=== PATIENT | male | born 1990 | race Caucasian/White ===

== ENCOUNTER 2016-11-14 13:32 | Emergency (ER) | payer SELFPAY ==
--- NOTE | 2016-11-14 13:39 | EDPHY ---
H & P Time Seen by Provider: 11/14/16 13:39 Constitutional: Initial Vital Signs Temperature (C) 36.7 C 11/14/16 13:47 Heart Rate 105 H 11/14/16 13:47 Respiratory Rate 18 11/14/16 13:47 Blood Pressure 128/93 H 11/14/16 13:47 O2 Sat (%) 96 11/14/16 13:47 O2 Delivery Mode Room Air Allergies/Adverse Reactions: No Known Allergies Allergy (Unverified 11/14/16 13:51) Home Medications: Medication Instructions Recorded NK [No Known Home Meds] 11/14/16 Medical Decision Making ED Course/Re-evaluation: CHIEF COMPLAINT: Psychiatric evaluation for paranoia and combativeness HISTORY OF PRESENT ILLNESS: This patient is a 26 year old male arriving via [employer] on an M1 hold for paranoia and combativeness. He is minimally cooperative during assessment and is actively using profanity with staff. He states that today he has smoked "resin " out of a glass pipe and drank [employer]airo[employer] vodka. He states he fell into a hdez while "retrieving his stash" but denies any ongoing pain or injury. He denies any changes in vision, headache, nausea, vomiting, or other associated symptoms. He denies suicidal or homicidal ideation. REVIEW OF SYSTEMS: A 10 point review of systems was performed and is negative with the exception of the elements mentioned in the history of present illness. PHYSICAL EXAM: General Appearance: Alert, well hydrated, appropriate, and non-toxic appearing. Head: Small abrasion to left worship. Eyes: Pupils equal, round, reactive to light and accommodation, EOMI, no trauma , no injection. Throat: Mucus membranes moist. Neck: Supple, nontender. Respiratory: No retractions, no distress, no wheezes, and no accessory muscle use. Lungs are clear to auscultation bilaterally. Cardiovascular: Regular rate and rhythm, no murmurs, rubs, or gallops. Good capillary refill all extremities. Gastrointestinal: Abdomen is soft, nontender, non-distended, no masses, no rebound, no guarding, no peritoneal signs. Musculoskeletal: Abrasion to left knee. Normal active ROM of all extremities, atraumatic. Neurological: Alert, appropriate, and interactive. Non-focal neuro exam. Skin: Flushed face. No rashes, good turgor, no nodules on palpation. Past medical history: Schizoaffective disorder Past surgical history: Denies Family history: Noncontributory Social history: Lives in [place] DIFFERENTIAL DIAGNOSIS: The differential diagnosis for the patient's paranoia included but was not limited to schizophrenia, functional and major depression, situational depression, medication side effect, drugs, and alcohol abuse. MEDICAL DECISION MAKING: Patient is in no acute distress and is hemodynamically stable. Patient has known history of psychiatric disorders and is here for evaluation. Reassessed patient, he is slightly agitated and requesting to smoke a cigarette. He has agreed to Nicotine gum instead. EtOH 200. Patient is agitated. 10mg Haldol administered. We are awaiting psychiatric team's evaluation. (Wilder Gordon) 11:00 p.m. the patient has been evaluated by Mental Health. He is no longer having suicidal statements feelings. The psychiatrist legal consultant would like to re- evaluate in the morning because they do not have collateral information. Care transferred to Dr. Babar Maldonado and 11:00 p.m. (Jovi Stanton) 2300 Care assumed by me pending mental health evaluation. [address] Vazquez pending mental health evaluation. (Chan Maldonado) Other Provider: I assumed care of this patient from Dr. Maldonado at 7:00 a.m.. The patient underwent psychiatric evaluation. He is not felt to be a danger to himself or to others or to be gravely disabled. Patient denies homicidality or suicidality. It is felt that his presentation was most likely related to alcohol intoxication. The mental health hold has been lifted and the patient is [facility] where he will arrange outpatient care. (Julissa Vazquez) - Data Points Laboratory Results: Laboratory Results 11/14/16 13:54 11/14/16 13:54 Medications Given: Discontinued Medications Haloperidol Lactate (Haldol Injection) 10 mg IM EDNOW ONE Stop: 11/14/16 14:58 Last Admin: 11/14/16 15:00 Dose: 10 mg Lorazepam (Ativan) 2 mg PO EDNOW ONE Stop: 11/14/16 13:48 Last Admin: 11/14/16 13:54 Dose: 2 mg Nicotine Polacrilex (Nicorette) 2 mg B PRN PRN PRN Reason: Nicotine Withdrawal Stop: 05/13/17 14:19 Last Admin: 11/14/16 14:23 Dose: 2 mg Departure - Departure Disposition: Home, Routine, Self-Care Clinical Impression: Alcohol intoxication Condition: Good Instructions: Alcohol Intoxication (ED) Additional Instructions: For primary care you should register with [facility]. Go directly to the mental health clinic today. Referrals: [facility],. [Clinic] - As per Instructions [facility] [Outside] - As per Instructions Report Scribed for: Wilder Gordon Report Scribed by: Reena Miller Date of Report: 11/14/16 Time of Report: 15:00
[2016-11-14] MEDS ORDERED: LORazepam 1 MG TAB PO ONE (13:47)
[2016-11-14 13:51] VITALS: O2SAT 96
[2016-11-14 14:00] LABS: % IMMATURE GRANULYOCYTES 0.3 % (0.0-1.1); ABSOLUTE IMMATURE GRANULOCYTES 0.02 10^3/uL (0.00-0.10); ADD DIFF? NO; ADD MORPH? NO; ADD SCAN? NO; ATYPICAL LYMPHOCYTE FLAG 30 (0-99); FRAGMENT RBC FLAG 0 (0-99); HEMATOCRIT 45.6 % (40.0-51.0); HEMOGLOBIN 15.1 g/dL (13.7-17.5); LEFT SHIFT FLG 0 (0-99); LIPEMIA HEMOLYSIS FLAG 80 (0-99); MEAN CELL HEMOGLOBIN 29.9 pg (27.9-34.1); MEAN CELL HEMOGLOBIN CONCENTR. 33.1 g/dL (32.4-36.7); MEAN CELL VOLUME 90.3 fL (81.5-99.8); MEAN PLATELET VOLUME 10.3 fL (8.7-11.7); PLATELET CLUMPS FLAG 0 (0-99); PLATELET COUNT 252 10^3/uL (150-400); RED BLOOD CELL COUNT 5.05 10^6/uL (4.40-6.38); RED CELL DISTRIBUTION WIDTH 14.2 % (11.5-15.2)
[2016-11-14 14:14] LABS: ANION GAP 14 mEq/L (8-16); CALCIUM 9.6 mg/dL (8.5-10.4); CARBON DIOXIDE 22 mEq/l (22-31); CHLORIDE 107 mEq/L (97-110); CREATININE 0.8 mg/dL (0.7-1.3); ETHANOL SERUM 209 mg/dL (0-10); GLOMERULAR FILTRATION RATE > 60; GLUCOSE 102 mg/dL (70-100); POTASSIUM 4.5 mEq/L (3.5-5.2); SALICYLATE < 1.0 mg/dL (2.0-20.0); SODIUM 143 mEq/L (134-144)
[2016-11-14] MEDS ORDERED: NICOTINE POLACRILEX 2 MG GUM B PRN (14:20)
[2016-11-14] MEDS ORDERED: HALOPERIDOL LACT 5 MG/ML INJ ONE (14:57)
[2016-11-14] MEDS ORDERED: HALOPERIDOL LACT 5 MG/ML INJ IM ONE (14:57)
[2016-11-15 08:20] VITALS: RESP 14; TEMP 97.5
[2016-11-15 09:09] VITALS: BP 130/78; PULSE 75
== END 2016-11-15 09:08 | disposition home or self-care (01) ==
DX: F10.129 Alcohol abuse with intoxication, unspecified (principal)
CPT/HCPCS: 80305; G0480

== ENCOUNTER 2017-03-27 06:35 | Emergency (ER) | payer MEDICAID ==
--- NOTE | 2017-03-27 06:43 | EDPHY ---
H & P Source: Patient, EMS - Medical/Surgical History Hx Asthma: No Hx Chronic Respiratory Disease: No Hx Diabetes: No Hx Cardiac Disease: No Hx Renal Disease: No Hx Cirrhosis: No Hx Alcoholism: No Hx HIV/AIDS: No Hx Splenectomy or Spleen Trauma: No Other PMH: Schizoeffective disorder. - Social History Smoking Status: Unknown if ever smoked HPI/ROS: HPI CHIEF COMPLAINT: Altered mental status possible drug intoxication HISTORY OF PRESENT ILLNESS: This patient 27-year-old male who presents emergency room by EMS [facility], after he was found in [facility] and was speaking incoherently and rambling. Due the patient's mental state his history and ROS is limited. There does not appear to be any trauma. He presents to the emergency room rambling. Unable to get an accurate history. Patient repeats over and over again "dont talk to me" Past Medical History: Unknown at this time Past Surgical History: Unknown Social History: Unknown Family History: Unknown ROS REVIEW OF SYSTEMS: Limited due to patient's mental state. Exam Constitutional uncooperative, triage nursing summary reviewed, vital signs reviewed, awake/alert. Eyes normal conjunctivae and sclera, EOMI, PERRLA. HENT normal inspection, atraumatic, moist mucus membranes, no epistaxis, neck supple/ no meningismus, no raccoon eyes. Respiratory clear to auscultation bilaterally, normal breath sounds, no respiratory distress, no wheezing. Cardiovascular rate normal, regular rhythm, no murmur, no edema, distal pulses normal. Gastrointestinal soft, non-tender, no rebound, no guarding, normal bowel sounds, no distension, no pulsatile mass. Genitourinary no CVA tenderness. Musculoskeletal no midline vertebral tenderness, full range of motion, no calf swelling, no tenderness of extremities, no meningismus, good pulses, neurovascularly intact. Skin pink, warm, & dry, no rash, skin atraumatic. Neurologic he is awake and moves all extremities. Non cooperative. Speaks in complete sentences. And states "dont talk to me" Psychiatric normal mood/affect. Heme/Lymph/Immune no lymphadenopathy. Differential Diagnosis: Includes but is not limited to in a particular order drug intoxication, substance abuse, underlying psychiatric illness Medical Decision Making: Plan for this patient IV establishment blood draw, check alcohol level, drug screen. Re-evaluate. Re-evaluation: 0712AM: At this time this patient has been signed over to Dr. Landon Smalls. Follow-up blood work and drug screen. Re-evaluate. (Ravinder Melchor) Constitutional: Initial Vital Signs Temperature (C) 37.1 C 03/27/17 06:49 Heart Rate 117 H 03/27/17 06:49 Respiratory Rate 20 03/27/17 06:49 Blood Pressure 145/92 H 03/27/17 06:49 O2 Sat (%) 91 L 03/27/17 06:49 O2 Delivery Mode Room Air Allergies/Adverse Reactions: No Known Allergies Allergy (Unverified 11/14/16 13:51) Home Medications: Medication Instructions Recorded Clotrimazole 1% 1 applic TP BID #1 cream 03/27/17 Medical Decision Making ED Course/Re-evaluation: I re-evaluated this patient at 7:10 a.m.. The patient will talk to me or answer questions though he is alert and appears to be able to hear me speaking to him. He replies repeatedly "don't talk to me Bird". Patient has papers from a counter [employer] our emergency department in [place] yesterday with diagnosis contusion of knee. Instructions were for use of Motrin for discomfort. The only history is reviewed of found outside running around without a sure. Patient does not voice any complaints to me. He is uncooperative for the exam but allows me to listen to heart and lungs which are normal and palpated his abdomen which appears to be nontender. Patient is on an arc hold by [place] [employer]. Re-evaluation again at 8:20 a.m.. Patient remained stable. He is alert and looks at me when I speak to him however he does not answer or speak to me. He remains nonverbal re-evaluation again at 9:45 a.m. patient is now talking and interacting. He tells me he is not thinking of harming himself or others. He denies drug ingestion. He tells me that he was at a store this morning and trying to buy something there was problem with pain meds and he got may add and this was the reason for him caring on. He is concerned about his bruise to his knee and chronic toenail infection. He denies that he has mental health issues and is not supposed to be taking any medication. He and I discussed treatment plan and criteria for return as well as importance of follow-up. He expresses understanding and agreement. (Landon Smalls) Differential Diagnosis: It appears that the patient does have some underlying mental health issues. However he is stable. He is not suicidal or homicidal. There is no acute findings of medical problems other than appearance of a 1 to 2-day-old bruise on his left knee. He is now alert oriented and conversational. (Landon Smalls) - Data Points Laboratory Results: Laboratory Results 03/27/17 07:55 03/27/17 07:55 Medications Given: Discontinued Medications Fluconazole (Diflucan) 150 mg PO ONCE ONE Stop: 03/27/17 10:03 Last Admin: 03/27/17 10:27 Dose: 150 mg Ibuprofen (Motrin) 600 mg PO EDNOW ONE Stop: 03/27/17 10:01 Last Admin: 03/27/17 10:26 Dose: 600 mg Departure - Departure Disposition: Home, Routine, Self-Care Clinical Impression: Knee contusion, Agitation Condition: Good Instructions: Contusion in Adults (ED) Additional Instructions: Ibuprofen 600 mg every 6 hours as needed for pain for your knee. May use Tinactin and [id number] fungal medications to help with fungal infection of toes. Return for worsening symptoms or thoughts of harming herself or others. I will give you the name of Clinic here in [place] for follow-up and further evaluation. You may walk in to be seen at [facility] tomorrow between 8 and 10:00 a.m. Referrals: Patient,NotPresent [Unknown] - As per Instructions [facility] [Outside] - 2-3 days, call for appt. Prescriptions: Clotrimazole 1% 1 applic TP BID #1 cream
[2017-03-27 08:07] LABS: % IMMATURE GRANULYOCYTES 0.4 % (0.0-1.1); ABSOLUTE IMMATURE GRANULOCYTES 0.05 10^3/uL (0.00-0.10); ADD DIFF? NO; ADD MORPH? NO; ADD SCAN? NO; ATYPICAL LYMPHOCYTE FLAG 0 (0-99); FRAGMENT RBC FLAG 0 (0-99); HEMATOCRIT 40.5 % (40.0-51.0); HEMOGLOBIN 13.9 g/dL (13.7-17.5); LEFT SHIFT FLG 0 (0-99); LIPEMIA HEMOLYSIS FLAG 90 (0-99); MEAN CELL HEMOGLOBIN 29.5 pg (27.9-34.1); MEAN CELL HEMOGLOBIN CONCENTR. 34.3 g/dL (32.4-36.7); MEAN PLATELET VOLUME 10.9 fL (8.7-11.7); PLATELET CLUMPS FLAG 0 (0-99); PLATELET COUNT 212 10^3/uL (150-400); RED BLOOD CELL COUNT 4.71 10^6/uL (4.40-6.38); RED CELL DISTRIBUTION WIDTH 13.2 % (11.5-15.2)
[2017-03-27 08:08] VITALS: TEMP 98.6
[2017-03-27 08:22] LABS: ANION GAP 11 mEq/L (8-16); CALCIUM 9.3 mg/dL (8.5-10.4); CARBON DIOXIDE 25 mEq/l (22-31); CHLORIDE 102 mEq/L (97-110); CREATININE 0.7 mg/dL (0.7-1.3); ETHANOL SERUM < 10 mg/dL (0-10); GLOMERULAR FILTRATION RATE > 60; GLUCOSE 103 mg/dL (70-100); POTASSIUM 4.2 mEq/L (3.5-5.2); SODIUM 138 mEq/L (134-144)
[2017-03-27] MEDS ORDERED: IBUPROFEN 600 MG TAB PO ONE (10:00)
[2017-03-27] MEDS ORDERED: FLUCONAZOLE 150 MG TAB PO ONE (10:02)
[2017-03-27 10:34] VITALS: BP 140/80; PULSE 93; RESP 18; O2SAT 97
--- NOTE | 2017-03-27 11:38 | ASDISCHSUM ---
Discharge Information Plan Status: Medically Cleared to Leave: Discharge Date:03/27/2017 10:33 AM CM D/C Disposition: ADT D/C Disposition:Home, Routine, Self-Care Projected Discharge Date:03/27/2017 10:33 AM Transportation at D/C: Discharge Delay Reason: Follow-Up Date:03/27/2017 10:33 AM Discharge Slot: Final Diagnosis: Placement Information Patient Contact Information Contact Name:KEE Relationship:Mother Address: Work Phone: City: [facility] Phone: State/Zip Code:[place] Email: Financial Information Financial Class: Primary Plan Desc:[employer] Primary Plan Number:[id number] Secondary Plan Desc: Secondary Plan Number: Assessment Information Intervention Information
== END 2017-03-27 10:33 | disposition home or self-care (01) ==
LOC: EDUNIT#
DX: R45.1 Restlessness and agitation (principal); M79.81 Nontraumatic hematoma of soft tissue
CPT/HCPCS: G0480

== ENCOUNTER 2017-03-28 00:28 | Emergency (ER) | payer MEDICAID ==
--- NOTE | 2017-03-28 00:33 | EDPHY ---
H & P - Medical/Surgical History Hx Asthma: No Hx Chronic Respiratory Disease: No Hx Diabetes: No Hx Cardiac Disease: No Hx Renal Disease: No Hx Cirrhosis: No Hx Alcoholism: No Hx HIV/AIDS: No Hx Splenectomy or Spleen Trauma: No Other PMH: Schizoeffective disorder. - Social History Smoking Status: Unknown if ever smoked <Ryan Fuentes - Last Filed: 03/28/17 00:36> <Chan Maldonado - Last Filed: 03/28/17 04:41> Time Seen by Provider: 03/28/17 00:32 HPI/ROS: CHIEF COMPLAINT: Alcohol use, head injury HISTORY OF PRESENT ILLNESS: 27-year-old homeless male arrives by ambulance, not a trauma activation, after he was found sleeping on someone's front porch and was noted to have frontal hematoma and laceration. He is not recall how this injury at . Admits to alcohol use. He denies complaints of physical pain or discomfort. Denies: Peripheral paresthesia, weakness, numbness, suicidal or homicidal ideation PRIMARY CARE PROVIDER:none REVIEW OF SYSTEMS: A ten point review of systems was performed and is negative with the exception of the items mentioned in the HPI PAST MEDICAL/SURGICAL HISTORY: Self-described "mental health issues" however will not elaborate further on this SOCIAL HISTORY: Homeless, positive beer this evening PHYSICAL EXAM 1) GENERAL: Well-developed, well-nourished, alert and oriented. Appears to be in no acute distress. Answering questions appropriately. 2) HEAD: Normocephalic, midline frontal hematoma and 2.5 cm transverse laceration 3) HEENT: Pupils equal, round, reactive to light bilaterally. Negative Horners. Nasopharynx, oropharynx, clear. No deformity or angulation of nose. No septal hematoma. No rhinorrhea. No oral trauma. Ears bilaterally with normal tympanic membranes. No hemotympanum. No fluid or blood in the external auditory canal. No raccoon eyes. No Duff sign. Teeth are normally aligned with no gross malocclusion, TMJ bilaterally nontender, facial bones nontender including the zygomatic arch, maxilla mandible. 4) NECK: Cervical collar is on.Cervical collar is removed while holding inline traction and patient has no complaints of midline cervical pain, no effusion noted, trachea midline, no JVD. Cervical collar replaced due to acute alcohol use 5) LUNGS: Clear to auscultation bilaterally, no wheezes, no rhonchi, no retractions. No obvious signs of trauma. No chest wall pain. No flaring, no grunting. Moving symmetrically. No crepitus. 6) HEART: Regular rate and rhythm, 7) ABDOMEN: No guarding, no rebound, no focal tenderness, no peritoneal signs, no signs of trauma, no ecchymosis 8) MUSCULOSKELETAL: Moving all extremities, no focal areas of tenderness, no obvious trauma. 9) BACK: No midline vertebral tenderness, no fluctuance, no step-off, no obvious trauma, no visual or palpable abnormality. 10) SKIN: Forehead laceration DIFFERENTIAL DIAGNOSIS: In no particular orderincluding but not limited to hypoglycemia, infectious process, electrolyte abnormality, head injury and intoxicants. (Ryan Fuentes) Constitutional: Initial Vital Signs Temperature (C) 36.5 C 03/28/17 00:29 Heart Rate 91 03/28/17 00:29 Respiratory Rate 16 03/28/17 00:29 Blood Pressure 101/86 H 03/28/17 00:29 O2 Sat (%) 97 03/28/17 00:29 O2 Delivery Mode Room Air Allergies/Adverse Reactions: No Known Allergies Allergy (Unverified 11/14/16 13:51) Home Medications: Medication Instructions Recorded Clotrimazole 1% 1 applic TP BID #1 cream 03/27/17 Medical Decision Making <Ryan Fuentes - Last Filed: 03/28/17 00:36> - Diagnostics Imaging: Discussed imaging studies w/ train caller Radiologist <Chan Maldonado - Last Filed: 03/28/17 04:41> - Diagnostics Imaging Results: A CT scan of the head and cervical spine are negative for acute traumatic injury other than a soft tissue scalp contusion per Dr. Webb. (Chan Maldonado ) Procedures: Procedure: Laceration repair with tissue adhesive Verbal consent was obtained from the patient. The 2.5 cm laceration on the forehead. The wound was scrubbed and explored to its base with a gloved finger. No foreign body seen, no foreign bodies palpated. There were no deep structures involved. The wound was repaired with tissue adhesive. The procedure was performed by myself. Patient has been informed that scarring will occur, although every effort has been made to minimize this. (Ryan Fuentes ) ED Course/Re-evaluation: 1245 am: Care turned over to Dr Maldonado at this time. Imaging studies pending. ( Ryan Fuentes) 0045 care assumed by me pending CT scan and sobriety. 0200 CT scans are negative for acute injury. Patient is sleeping. 0440 Patient is now awake and appropriate. Ambulating unassisted to the bathroom. No current complaints. Cervical collar has been removed. Full range of motion without pain. No midline tenderness. Medically cleared for the [facility] (Chan Maldonado) Departure <Ryan Fuentes - Last Filed: 03/28/17 00:36> <Chan Maldonado - Last Filed: 03/28/17 04:41> - Departure Disposition: Home, Routine, Self-Care Clinical Impression: Alcohol use Head injury Qualifiers: Encounter type: initial encounter Qualified Code(s): S09.90XA - Unspecified injury of head, initial encounter Forehead laceration Qualifiers: Encounter type: initial encounter Qualified Code(s): S01.81XA - Laceration without foreign body of other part of head, initial encounter Condition: Good Instructions: Laceration (ED), Head Injury (ED), Skin Adhesive Care (ED) Additional Instructions: PLEASE RETURN TO THE EMERGENCY DEPARTMENT (ED) IMMEDIATELY IF YOU HAVE INCREASED HEADACHE, PERSISTENT HEADACHE, VOMITING, WEAKNESS, CONFUSION OR VISUAL PROBLEMS. WE RECOMMEND THAT YOU DO NOT RESUME CONTACT SPORTS OR ACTIVITIES THAT TAKE COORDINATION OR BALANCE SUCH SKIING OR RIDING A BICYCLE UNTIL CLEARED TO DO SO BY YOUR DOCTOR OR BY A NEUROLOGIST. Referrals: [facility],. [Clinic] - 2-3 days, call for appt.
[2017-03-28] MEDS ORDERED: SKIN ADHESIVE (DERMABOND) 1 EACH TP ONE (00:34)
[2017-03-28 02:17] VITALS: O2SAT 93
[2017-03-28 04:48] VITALS: BP 116/95; PULSE 103; RESP 20; TEMP 98.2
== END 2017-03-28 05:05 | disposition home or self-care (01) ==
LOC: EDUNIT#
PROC: 0HQ1XZZ Repair Face Skin, External Approach (ICD-10-PCS; principal; 2017-03-28)
DX: S01.81XA Laceration without foreign body of other part of head, initial encounter (principal); F10.929 Alcohol use, unspecified with intoxication, unspecified; W18.39XA Other fall on same level, initial encounter

== ENCOUNTER 2017-04-23 07:01 | Emergency (ER) | payer MEDICAID ==
--- NOTE | 2017-04-23 07:36 | EDPHY ---
H & P Time Seen by Provider: 04/23/17 07:18 HPI/ROS: HPI Fell backwards. Hit head. 27-year-old male by ambulance. This patient was waiting for a bus. [place] at [place] station[place] He thought there was a plaque see glass wall behind him. He leaned back, fell backwards off the bench onto his back and struck the back of his head. He reports he was done but did not lose consciousness. He complains of a mild headache to the posterior aspect of his head where he hit his head. He is not on any anticoagulation or antiplatelet agents. He denies any neck pain. No extremity pain. No other complaints. ROS: Constitutional: No fever, no chills. No weakness. Eyes: No changes in vision. Respiratory: No cough. No shortness of breath. Cardiac: No chest pain, no palpitations. Gastrointestinal: No abdominal pain, no vomiting, no diarrhea. Musculoskeletal: No back pain. No neck pain. As above. Skin: No rashes. No lacerations or abrasions. Neurological: As above. No focal weakness or altered sensation. Past medical history: Schizoaffective disorder, bipolar, anxiety. Social history: Here by himself. He does not smoke. Denies alcohol. He is homeless. Physical Exam: General Appearance: Alert, no distress. This patient is responding to questions appropriately and in full sentences. This patient appears well- hydrated and well-nourished. Head: Normocephalic atraumatic. Face: Facial bones are stable on palpation. Eyes: Pupils equal and round and reactive to light, no pallor or injection. No lid erythema or edema. ENT, Mouth: Mucous membranes moist. Dentition is intact. No malocclusion of the jaw. No tongue lacerations or abrasions. Pharynx is clear. The bilateral nasal canals are clear. No septal hematoma. Respiratory: There are no retractions, lungs are clear to auscultation with good air movement bilaterally. Chest wall is stable to AP and lateral palpation. Cardiovascular: Regular rate and rhythm. No murmur. Gastrointestinal: Abdomen is soft and nontender, no masses, bowel sounds normal. Neurological: Motor sensory function is intact. Cranial nerves are normal. Cerebellar function intact. Skin: Warm and dry, no rashes. No lacerations, abrasions or contusions. Musculoskeletal: Neck is supple and nontender. The trachea is midline. No midline cervical, thoracic, lumbar or sacral tenderness on palpation. No flank tenderness on palpation. Extremities are symmetrical, full range of motion. All joints in the bilateral upper and bilateral lower extremities range without pain or impingement. No tenderness on palpation of the long bones in the bilateral upper and bilateral lower extremities. Psychiatric: No agitation. No depression. Database: EKG: Imaging: Procedures: Emergency department course: Vital signs reviewed and are unremarkable. Patient has an unremarkable trauma physical exam. There is no alteration in his mental status. He feels comfortable going home and I feel he is safe for discharge. Head injury precautions discussed with him. Follow-up reviewed. All of his questions were answered. He was discharged in good condition. Differential Diagnosis: The differential diagnosis on this patient includes but is not limited to minor head injury. Traumatic brain injury, skull fracture, cervical spine fracture, other significant traumatic injury unlikely. This represents a partial list of diagnoses considered. These considerations are based on history, physical exam , past history, reassessment and diagnostic testing. Smoking Status: Current every day smoker Constitutional: Initial Vital Signs Temperature (C) 36.7 C 04/23/17 07:01 Heart Rate 94 04/23/17 07:01 Respiratory Rate 16 04/23/17 07:01 Blood Pressure 150/104 H 04/23/17 07:01 O2 Sat (%) 95 04/23/17 07:01 O2 Delivery Mode Room Air Allergies/Adverse Reactions: No Known Allergies Allergy (Unverified 11/14/16 13:51) Home Medications: Medication Instructions Recorded NK [No Known Home Meds] 04/23/17 Departure - Departure Disposition: Home, Routine, Self-Care Clinical Impression: Head injury Condition: Good Instructions: Head Injury (ED) Additional Instructions: Read and follow provided instructions. Follow-up with your primary care physician at [facility] as needed on Tuesday for re-evaluation. Return to the emergency department for worsening headache, vomiting, confusion or other serious concerns. Referrals: NONE *PRIMARY CARE P,. [Primary Care Provider] - As per Instructions [facility],. [Clinic] - As per Instructions
[2017-04-23 07:45] VITALS: BP 133/104; PULSE 99; RESP 14; TEMP 97.2; O2SAT 97
== END 2017-04-23 07:45 | disposition home or self-care (01) ==
LOC: EDUNIT#
DX: S09.90XA Unspecified injury of head, initial encounter (principal); F17.200 Nicotine dependence, unspecified, uncomplicated; W01.198A Fall on same level from slipping, tripping and stumbling with subsequent striking against other object, initial encounter; Y92.521 Bus station as the place of occurrence of the external cause; Y99.8 Other external cause status; Y93.89 Activity, other specified

== ENCOUNTER 2017-04-27 16:43 | Emergency (ER) | payer MEDICAID ==
--- NOTE | 2017-04-27 16:57 | EDPHY ---
H & P Time Seen by Provider: 04/27/17 16:49 HPI/ROS: CHIEF COMPLAINT: Decreased responsiveness HISTORY OF PRESENT ILLNESS: EMS was called because bystanders apparently found the patient sitting in the parking lot at [facility] with his head on his knees. He had decreased responsiveness and was brought to the ED for evaluation. On arrival the patient denies alcohol or drugs or any psychiatric disorder. Review of his chart from this week reveals diagnosis of schizoaffective disorder. Denies any recent illness or trauma, denies suicidal or homicidal ideation, denies hallucinations or hearing voices. He says he has low back pain and bilateral knee pain which he has had for several months without change. REVIEW OF SYSTEMS: Eye: no change in vision ENT: no sore throat Cardiac: no chest pain or syncope Pulmonary: no cough or SOB Abdomen: no vomiting, diarrhea, abdominal pain Musculoskeletal: No neck pain. No recent injury or trauma. Skin: no rash Neuro: no headache, no weakness or numbness in extremities. Constitutional: no fever : no urinary symptoms A comprehensive 10 point review of systems is otherwise negative aside from elements mentioned in the history of present illness. PAST MEDICAL HISTORY: Emergency department visit dated 04/23/2017 reviewed, includes schizoaffective disorder Social history: Marijuana but no alcohol or drugs General Appearance: Alert and conversant, cooperative. Eyes: No scleral icterus. ENT, Mouth: Normal mucous membranes. No hemotympanum, no tongue laceration or abrasion, no external evidence of head trauma. Respiratory: Normal respiratory effort, breath sounds equal, lungs are clear to auscultation. Cardiovascular: Regular rate and rhythm. Gastrointestinal: Abdomen is soft and non tender. Neurological: Alert and oriented x3. Normally conversant. Face symmetric, normal movement and sensation in all extremities. Skin: Warm and dry, no rashes. Musculoskeletal: No cervical thoracic or lumbar spine tenderness to palpation. Both knees are nontender with normal range of motion. Psychiatric: Not agitated. See HPI for remainder. Emergency Department course/MDM: Patient is schizoaffective disorder with chronic back and knee pain. Patient is cooperative and does not appear to meet criteria for mental health hold. Oral acetaminophen, discharge with outpatient follow-up. Smoking Status: Current every day smoker Constitutional: Initial Vital Signs Temperature (C) 37 C 04/27/17 16:55 Heart Rate 88 04/27/17 16:55 Respiratory Rate 18 10/25/17 16:55 Blood Pressure 136/101 H 04/27/17 16:55 O2 Sat (%) 94 04/27/17 16:55 O2 Delivery Mode Room Air Allergies/Adverse Reactions: No Known Allergies Allergy (Verified 04/27/17 16:54) Home Medications: Medication Instructions Recorded NK [No Known Home Meds] 04/23/17 Medical Decision Making - Data Points Medications Given: Discontinued Medications Acetaminophen (Tylenol) 650 mg PO EDNOW ONE Stop: 04/27/17 17:07 Last Admin: 04/27/17 17:18 Dose: 650 mg Departure - Departure Disposition: Home, Routine, Self-Care Clinical Impression: Back pain Qualifiers: Back pain location: low back pain Chronicity: unspecified Back pain laterality : unspecified Sciatica presence: without sciatica Qualified Code(s): M54.5 - Low back pain Schizoaffective disorder Qualifiers: Schizoaffective disorder type: unspecified Qualified Code(s): F25.9 - Schizoaffective disorder, unspecified Condition: Good Instructions: Schizoaffective Disorder (ED), Back Pain (ED) Referrals: [facility],. [Clinic] - As per Instructions
[2017-04-27 16:58] VITALS: RESP 18; TEMP 98.6
[2017-04-27] MEDS ORDERED: ACETAMINOPHEN 325 MG TAB PO ONE (17:06)
[2017-04-27] MEDS ORDERED: ACETAMINOPHEN 325 MG TAB ONE (17:17)
[2017-04-27 17:20] VITALS: BP 132/96; PULSE 97; O2SAT 92
== END 2017-04-27 17:21 | disposition home or self-care (01) ==
LOC: EDUNIT#
DX: F25.9 Schizoaffective disorder, unspecified (principal); M54.5 Low back pain; F17.200 Nicotine dependence, unspecified, uncomplicated